=== PATIENT | male | born 1965 | race Caucasian/White ===

== ENCOUNTER 2024-04-04 06:29 | Emergency (ER) | payer BC ==
[~2024-04-04] VITALS: Ht 175.3 cm; Wt 80.0 kg
[2024-04-04 06:41] VITALS: TEMP 97.7
[2024-04-04] MEDS: magnesium sulf-water 2g/50mL 50 ML IV ONE (06:56)
[2024-04-04] MEDS: normal saline 1000ml 1,000 ML IV ONE (06:57)
[2024-04-04] MEDS: potassium Cl 20 mEq SR tablet PO STA (06:57)
[2024-04-04 07:23] LABS: BASOPHILS # (AUTO) 0.1 X10'3 (0-0.2); BASOPHILS % (AUTO) 0.5 % (0-1); EOSINOPHILS # (AUTO) 0.3 X10'3 (0-0.9); EOSINOPHILS % (AUTO) 2.5 % (0-6); HEMATOCRIT 51.7 % (42.0-52.0); HEMOGLOBIN 17.1 g/dl (14.0-17.9); LYMPHOCYTES # (AUTO) 3.4 X10'3 (1.1-4.8); LYMPHOCYTES % (AUTO) 28.5 % (21-51); MEAN CORPUSCULAR HEMOGLOBIN 32.5 PG (27.0-31.0); MEAN CORPUSCULAR HGB CONC 33.1 g/dL (33.0-36.5); MEAN CORPUSCULAR VOLUME 98.3 FL (78-98); MEAN PLATELET VOLUME 9.1 FL (7.4-10.4); MONOCYTES # (AUTO) 1.1 X10'3 (0-0.9); MONOCYTES % (AUTO) 8.9 % (2-12); NEUTROPHILS # (AUTO) 7.2 X10'3 (1.8-7.7); NEUTROPHILS % (AUTO) 59.6 % (42-75); PLATELET COUNT 246 X10'3 (140-440); RED BLOOD COUNT 5.26 X10'6 (4.70-6.10); RED CELL DISTRIBUTION WIDTH 14.5 % (11.5-14.5)
[2024-04-04 08:21] LABS: ALBUMIN 3.5 G/DL (3.4-5.0); ANION GAP 8 (8-16); BLOOD UREA NITROGEN 32 MG/DL (7-18); BUN/CREATININE RATIO 34.8 (10.0-20.0); CHLORIDE 106 MMOL/L (99-107); CREATININE 0.92 MG/DL (0.60-1.10); GLUCOSE 109 MG/DL (70-104); POTASSIUM 4.2 MMOL/L (3.5-5.1); PRO BRAIN NATRIURETIC PEPTIDE 1671 PG/ML (0-125); SODIUM 139 MMOL/L (135-145); TOTAL CARBON DIOXIDE 24.6 MMOL/L (24-32); eCRCL 86 ML/MIN; eGFR 84 ML/MIN
[2024-04-04] MEDS: normal saline 1000ML IV soln IVB ONE ×2 (08:22→09:56)
[2024-04-04] MEDS: LORazepam 2 mg/ml vial IV ONE (08:22)
[2024-04-04 08:43] LABS: D-DIMER 0.95 MG/L FEU (0-0.50)
[2024-04-04 08:49] LABS: FREE T4 (FREE THYROXINE) 1.07 NG/DL (0.73-1.40)
[2024-04-04 09:10] VITALS: RESP 7; O2SAT 97
[2024-04-04 09:15] VITALS: RESP 18; O2SAT 95
[2024-04-04] MEDS: etomidate 2mg/ml inj. IV ONE (09:28)
[2024-04-04 09:32] VITALS: RESP 12; O2SAT 97
[2024-04-04 13:31] VITALS: BP 108/82; PULSE 75; RESP 16; O2SAT 98
== END 2024-04-04 13:35 | disposition home or self-care (01) ==
LOC: ER 06:30
DX: I48.92 Unspecified atrial flutter (principal); I48.91 Unspecified atrial fibrillation; R11.0 Nausea; R42 Dizziness and giddiness; G47.30 Sleep apnea, unspecified
CPT/HCPCS: 36415; 71045; 80048; 83880; 84439; 84443; 84484; 85025; 85379; 92960; 93005; 93306; 96361; 96365; 96375; 99291; J2060; J3490; J7030; 99152; A4620; A6258